=== PATIENT | female | born 1955 | race Caucasian/White ===

== ENCOUNTER → 2019-06-12 | Outpatient (CLI) | payer MEDICARE ==
[~2019-06-12] MED LIST: ALPR0.5T7 PO; AMIT100T PO; CLON2TAB9 PO; IBUP-1223 PO; LEVO50TA5 PO; METH500T7 PO; OMNIPAQUE 350 MG/ML, 100ML BOTTLE ONE; OXYC15TA PO; ZOLP10TA PO
== END | disposition home or self-care (01) ==
LOC: CFH 09:22
PROVIDERS: ATTEND Physician Assistant Medical
DX: K44.9 Diaphragmatic hernia without obstruction or gangrene (principal); K76.0 Fatty (change of) liver, not elsewhere classified; K86.89 Other specified diseases of pancreas; F41.9 Anxiety disorder, unspecified; Z90.49 Acquired absence of other specified parts of digestive tract
CPT/HCPCS: 74160; 82565; Q9967

== ENCOUNTER → 2019-09-07 | Outpatient (CLI) | payer MEDICARE ==
[~2019-09-07] MED LIST changes: +DICLOFENAC TD; +FAMO20TA7 PO; -OMNIPAQUE 350 MG/ML, 100ML BOTTLE ONE; +ONDA4TAB13 SL; -OXYC15TA PO; +OXYC15TA3 PO; +TIZA2TAB4 PO; +TRAZ150T62 PO; +Z QUIL
== END | disposition home or self-care (01) ==
LOC: STAR 14:23
PROVIDERS: ATTEND Internal Medicine Gastroenterology
DX: Z01.818 Encounter for other preprocedural examination (principal); R93.89 Abnormal findings on diagnostic imaging of other specified body structures; R10.13 Epigastric pain; R63.4 Abnormal weight loss
CPT/HCPCS: 93005

== ENCOUNTER 2019-09-13 09:49 | Day surgery (SDC) | payer MEDICARE ==
[~2019-09-13] VITALS: Ht 152.4 cm; Wt 45.3 kg
[2019-09-13] MEDS ORDERED: LACTATED RINGERS 1,000 ML IV SCH (10:10)
[2019-09-13 10:11] VITALS: BP 124/74
[2019-09-13] MEDS ORDERED: CHLORHEXIDINE 15 ML UDC ONE (10:17)
[2019-09-13] MEDS ORDERED: CHLORHEXIDINE 15 ML UDC MM ONE (10:30)
[2019-09-13] MEDS ORDERED: DEXAMETHASONE 4 MG/ML, 1ML ONE (13:15)
[2019-09-13] MEDS ORDERED: PROPOFOL 10 MG/ML, 20ML ONE (13:15)
[2019-09-13] MEDS ORDERED: GLYCOPYRROLATE 0.2MG/1ML, 5ML ONE (13:15)
[2019-09-13] MEDS ORDERED: MIDAZOLAM 1 MG/ML, 2ML ONE ×2 (13:16→14:18)
[2019-09-13] MEDS ORDERED: LABETALOL 5MG/ML, 20ML IV PRN (13:30)
[2019-09-13] MEDS ORDERED: LORazepam 2 MG/ML, 1ML IVPush PRN (13:30)
[2019-09-13] MEDS ORDERED: MEPERIDINE/PF 25MG/0.5ML IVPush PRN (13:30)
[2019-09-13] MEDS ORDERED: DIAZEPAM 5 MG/ML, 2ML IVPush PRN (13:30)
[2019-09-13] MEDS ORDERED: ONDANSETRON 2MG/ML, 2ML IVPush PRN (13:30)
[2019-09-13] MEDS ORDERED: METOCLOPRAMIDE 5 MG/ML, 2ML IVPush PRN (13:30)
[2019-09-13] MEDS ORDERED: EPHEDRINE 50 MG/ML, 1ML IM PRN (13:30)
[2019-09-13] MEDS ORDERED: morphine SULFATE 10 MG/ML, 1ML IVPush PRN (13:30)
[2019-09-13] MEDS ORDERED: HALOPERIDOL 5 MG/ML IV PRN (13:30)
[2019-09-13] MEDS ORDERED: ALBUTEROL/IPRATROPIUM 2.5MG/0.5MG, 3 ML NPPB PRN (13:30)
[2019-09-13] MEDS ORDERED: EPHEDRINE 50 MG/ML, 1ML IVPush PRN (13:30)
[2019-09-13] MEDS ORDERED: HYDROmorphone 1 MG/ML, 1ML INJ IVPush PRN (13:30)
[2019-09-13] MEDS ORDERED: ACETAMINOPHEN 325 MG TABLET PO PRN (13:30)
[2019-09-13] MEDS ORDERED: DIPHENHYDRAMINE 50 MG/ML, 1ML IVPush PRN (13:30)
[2019-09-13] MEDS ORDERED: hydrALAzine 20 MG/ML, 1ML IV PRN (13:30)
[2019-09-13] MEDS: MIDAZOLAM 1 MG/ML, 2ML IV PRN ×2 (14:20→14:40)
[2019-09-13] MEDS ORDERED: FENTANYL PF 100 MCG/2ML ONE (14:41)
[2019-09-13] MEDS ORDERED: OXYcodone 5 MG/5 ML ORAL.SOL UDC ONE (14:42)
[2019-09-13] MEDS ORDERED: MEPERIDINE/PF 25MG/ML,1ML ONE (14:42)
[2019-09-13] MEDS: OXYcodone 5 MG/5 ML ORAL.SOL UDC PO PRN ×2 (14:43→16:45)
[2019-09-13] MEDS: FENTANYL PF 100 MCG/2ML IV PRN ×2 (14:45→14:50)
== END 2019-09-13 17:20 | disposition home or self-care (01) ==
LOC: OUT 09:49
PROVIDERS: ATTEND Internal Medicine Gastroenterology
DX: R10.9 Unspecified abdominal pain (principal); K86.1 Other chronic pancreatitis; K31.89 Other diseases of stomach and duodenum; K86.89 Other specified diseases of pancreas; F17.210 Nicotine dependence, cigarettes, uncomplicated; Z79.899 Other long term (current) drug therapy; Z88.8 Allergy status to other drugs, medicaments and biological substances; Z88.1 Allergy status to other antibiotic agents; Z91.030 Bee allergy status; Z85.3 Personal history of malignant neoplasm of breast; Z88.5 Allergy status to narcotic agent; Z90.49 Acquired absence of other specified parts of digestive tract; Z82.49 Family history of ischemic heart disease and other diseases of the circulatory system
CPT/HCPCS: 43237; 43239; 88305; J1100; J2175; J2250; J2704; J3010; J7120